=== PATIENT | male | born 1960 | race Caucasian/White ===

== ENCOUNTER 2017-02-04 09:33 | Outpatient (CLI) ==
--- NOTE | 2017-02-04 10:22 | DI ---
EXAM: Cervical spine six views HISTORY: Neck pain COMPARISON: None TECHNIQUE: Six views cervical spine were performed, including oblique views FINDINGS: Vertebral bodies normal height. C7 is poorly visualized on the lateral view. No fractur e is visualized. Mild intervertebral disc space narrowing C5-C6 and mild to moderate intervertebral disc space narrowing C6-C7. Straightening of the normal cervical lordosis. No subluxation. Multi level facet and uncovertebral hypertrophy. Degenerative changes result in mild multilevel neural fo raminal narrowing and moderate bilateral neural foraminal narrowing C4-C5 and C6-C7. Prevertebral s oft tissues appear normal. IMPRESSION: 1. Chronic discogenic degenerative disease and facet arthrosis. 2. Straightening of the normal cervical lordosis.
--- NOTE | 2017-02-04 10:22 | DI ---
EXAM: Thoracic spine radiographs. HISTORY: Back pain. COMPARISON: None available. TECHNIQUE: Frontal, lateral and swimmer's views. FINDINGS: The normal curvature and alignment are maintained. Vertebral body heights are normal. L oss of disc height and endplate osteophyte formation noted throughout the thoracic spine, moderate i n the lower thoracic spine No fracture or subluxation seen. Adjacent soft tissues are unremarkable. IMPRESSION: Moderate degenerative disc disease.
--- NOTE | 2017-02-04 10:25 | DI ---
EXAM: Left ribs four views HISTORY: Chest pain COMPARISON: None TECHNIQUE: Four views left ribs were performed FINDINGS: No left rib fracture identified. Degenerative change in the spine. +No visible pneumoth orax IMPRESSION: No left rib fracture identified.
== END 2017-02-04 09:34 | disposition home or self-care (01) ==
LOC: RAD 09:33
PROVIDERS: ATTEND Emergency Medicine
DX: M54.2 Cervicalgia (principal); M54.6 Pain in thoracic spine; R07.9 Chest pain, unspecified

== ENCOUNTER 2017-03-19 09:00 | Outpatient (RCR) ==
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
--- NOTE | 2017-03-13 16:32 | RS.OPPTDN ---
Subjective Date of Note: 03/13/17 Visit #: 2 Date of Evaluation: 03/08/17 Payer Source: Insurance Treatment Diagnosis: Back pain Current Subjective/complaints:: Patient says he has no actual comfort in any position. Reports he has sleep apnea, so it is difficult for him to sleep consistently. Says he is awakened at least hourly. Reports constant pain to the L mid to low back radiating to the ribs. He says he has been through healthcare account manager and has had laser as well as TENS unit. He replies no actual relief with any of these. Pain Assessment - Pain Description Pain Location: middle and lower back Current Pain Intensity: 06/30 - Treatment Modality: Ultrasound Parameters/Method Applied: continuous @ 1.6 w/cm2 x 12 mins Treatment Area: L mid thoracic and upper lumbar paraspinals Patient Position: Prone - Heat/Cryotherapy Treatment: Hot Pack (mid to low back in R sidelying x 15 mins) Interventions - Exercise/Activities/Manual Therapy Exercises/Activities: Initiated passive stretching to the L LE: SKTC, HS, Piriformis, Trunk rotation x 3. Education on modalities used and possibly beginning lumbar traction next week. Total minutes of Exercise: 12 Manual Therapy: NA - Charges Total Direct Minutes: 24 Total Treatment Time: 39 Procedures billed for this date of service:: hp, u/s, ex Assessment: Patient has had hx of mod to severe mid to low back pain with radiation to the L ribs (mid chest). He demo tight HS to the L and increased pain to the back and hip with fig 4 stretch (attempted once). Patient felt relief after treatment today. May benefit from beginning traction next week. Patient Education: Education of diagnosis, Body/Joint mechanics, Home Exercise Program, Home Safety, Activity Modification, Education of Plan of Care Short Term Goals Goal #1: Patient independent in basic HEP. Goal to be met by: 03/26/17 Goal #2: Bilateral SLR to 50-55 degrees. Goal to be met by: 03/26/17 Goal #3: Pain at rest <7/10. Goal to be met by: 03/26/17 Private Duty Rn Goals Goal #1: Pt knows HEP and to cont. ex's to maintain functional level at D/C. Goal to be met by: 04/27/17 Goal #2: Score on Oswestry LBP scale improved to 28. Goal to be met by: 04/27/17 Goal #3: Pt able to perform daily activities/ADL's with minimal back pain. Goal to be met by: 04/27/17 Goal #4: Pt able to sleep 6 hours without interruption from back pain. Goal to be met by: 04/27/17 Plan PLAN OF CARE EXPIRES ON:: 04/27/17 ORDER # VISITS AND/OR THROUGH DATE: 04/27/17 PLAN: Continue Plan of Care (try lumbar traction next week)
--- NOTE | 2017-03-15 16:53 | RS.OPPTDN ---
Subjective Date of Note: 03/15/17 Visit #: 3 Date of Evaluation: 03/08/17 Payer Source: Insurance Treatment Diagnosis: Back pain Current Subjective/complaints:: patient says he had mild relief from therapy extending to the evening/bedtime (about 6 hours). Reports some form of pain is always at the mid to low back and around the L side of rib cage. Pain Assessment - Pain Description Pain Location: middle and lower back Current Pain Intensity: 8/10 - Treatment Modality: Ultrasound Parameters/Method Applied: continuous @ 1.6 w/cm2 x 12 mins to the L mid thoracic to upper lumbar paraspinals Patient Position: Prone - Heat/Cryotherapy Treatment: Hot Pack (mid to low back and around to the L side in R sidelying x 15 mins) Interventions - Exercise/Activities/Manual Therapy Exercises/Activities: Continued with passive stretching to the L LE: SKTC, HS, Piriformis, Trunk rotation x 3. Total minutes of Exercise: 13 Manual Therapy: NA - Charges Total Direct Minutes: 25 Total Treatment Time: 40 Procedures billed for this date of service:: hp, u/s, ex Assessment: Patient experienced relief from first session ~ 6 hours. He expressed feeling better after today's as well. He should further improve with more lasting relief with continued modalities and intiating lumbar traction next week with using caution on thoracic belt tightness. Patient Education: Education of diagnosis, Body/Joint mechanics, Home Exercise Program, Home Safety, Activity Modification, Education of Plan of Care Short Term Goals Goal #1: Patient independent in basic HEP. Goal to be met by: 03/26/17 Goal #2: Bilateral SLR to 50-55 degrees. Goal to be met by: 03/26/17 Goal #3: Pain at rest <7/10. Goal to be met by: 03/26/17 Blacksmith Helper Goals Goal #1: Pt knows HEP and to cont. ex's to maintain functional level at D/C. Goal to be met by: 04/27/17 Goal #2: Score on Oswestry LBP scale improved to 28. Goal to be met by: 04/27/17 Goal #3: Pt able to perform daily activities/ADL's with minimal back pain. Goal to be met by: 04/27/17 Goal #4: Pt able to sleep 6 hours without interruption from back pain. Goal to be met by: 04/27/17 Plan PLAN OF CARE EXPIRES ON:: 03/28/17 ORDER # VISITS AND/OR THROUGH DATE: 04/27/17 PLAN: Continue Plan of Care
--- NOTE | 2017-03-19 10:25 | RS.OPPTDN ---
Subjective Date of Note: 03/19/17 Visit #: 4 Date of Evaluation: 03/08/17 Payer Source: Insurance Treatment Diagnosis: Back pain Current Subjective/complaints:: Patient says he had increased pain to the L mid back and low back over the weekend. Says he was not doing anything he thought would cause it, but was standing for a prolonged amount of time. He says it is better this morning. Pain Assessment - Pain Description Pain Location: middle and lower back Current Pain Intensity: 7/10 - Treatment Modality: Ultrasound Parameters/Method Applied: continuous @ 1.6w/cm2 to the L mid thoracic paraspinals and lower x 12 mins Patient Position: Prone - Heat/Cryotherapy Treatment: Hot Pack (mid to low back ( L ) in sidelying x 20 mins) - Traction Treatment Method: Mechanical, Intermittent, Lumbar Patient Position: Supine Amount of Force Applied: 58-62# Hold Time: 25 Rest Time: 5 Duration of treatment: 12 Traction Treatment Comment: 2 steps. 25% weight (254#) Interventions - Exercise/Activities/Manual Therapy Exercises/Activities: Reminded patient of HEP of stretching. Manual Therapy: NA - Charges Total Direct Minutes: 12 Total Treatment Time: 44 Procedures billed for this date of service:: hp, u/s, mechanical traction Assessment: Patient nolvia addition of traction well today. He should progress with poundage over the next few weeks. Patient Education: Education of diagnosis, Body/Joint mechanics, Home Exercise Program, Home Safety, Activity Modification, Education of Plan of Care Patient demonstrates compliance with HEP?: Yes Short Term Goals Goal #1: Patient independent in basic HEP. Goal to be met by: 03/26/17 Progress towards Goal:: Progressing Goal #2: Bilateral SLR to 50-55 degrees. Goal to be met by: 03/26/17 Goal #3: Pain at rest <7/10. Goal to be met by: 03/26/17 Long-Term Goals Goal #1: Pt knows HEP and to cont. ex's to maintain functional level at D/C. Goal to be met by: 04/27/17 Goal #2: Score on Oswestry LBP scale improved to 28. Goal to be met by: 04/27/17 Goal #3: Pt able to perform daily activities/ADL's with minimal back pain. Goal to be met by: 07/08/17 Goal #4: Pt able to sleep 6 hours without interruption from back pain. Goal to be met by: 04/27/17 Plan PLAN OF CARE EXPIRES ON:: 04/27/17 ORDER # VISITS AND/OR THROUGH DATE: 04/27/17 PLAN: Continue Plan of Care (progress traction)
== END 2017-03-20 ==
PROVIDERS: ATTEND Orthopaedic Surgery Orthopaedic Surgery of the Spine
DX: M54.5 Low back pain (principal)

== ENCOUNTER 2017-04-18 09:00 | Outpatient (RCR) ==
--- NOTE | 2017-03-21 10:45 | RS.OPPTDN ---
Subjective Date of Note: 03/21/17 Visit #: 5 Date of Evaluation: 03/08/17 Payer Source: Insurance Treatment Diagnosis: Back pain Current Subjective/complaints:: Patient says he hurts for a day after, but says traction felt good today. Pain Assessment - Pain Description Pain Location: middle and lower back Current Pain Intensity: 7/10 - Treatment Modality: Ultrasound Parameters/Method Applied: continuous @ 1.5 w/cm2 x 12 mins to lower thoracic and lumbar (L) Patient Position: Prone - Heat/Cryotherapy Treatment: Hot Pack (mid to low back in R sidelying x 20 mins) - Traction Treatment Method: Mechanical, Intermittent, Lumbar Patient Position: Supine Amount of Force Applied: 64# Hold Time: 25 Rest Time: 5 Duration of treatment: 16 Traction Treatment Comment: 2 steps Interventions - Exercise/Activities/Manual Therapy Exercises/Activities: Reminded patient of HEP of stretching. Manual Therapy: NA - Charges Total Direct Minutes: 12 Total Treatment Time: 48 Procedures billed for this date of service:: hp, u/s, mechanical traction Assessment: Patient experiencing better relief of lower back pain today. He appeared to nolvia poundage today and should progress next week. Patient Education: Education of diagnosis, Body/Joint mechanics, Home Exercise Program, Home Safety, Activity Modification, Education of Plan of Care Patient demonstrates compliance with HEP?: Yes Short Term Goals Goal #1: Patient independent in basic HEP. Goal to be met by: 03/26/17 Progress towards Goal:: Progressing Goal #2: Bilateral SLR to 50-55 degrees. Goal to be met by: 03/26/17 Goal #3: Pain at rest <7/10. Goal to be met by: 03/26/17 Group Home Goals Goal #1: Pt knows HEP and to cont. ex's to maintain functional level at D/C. Goal to be met by: 04/27/17 Goal #2: Score on Oswestry LBP scale improved to 28. Goal to be met by: 04/27/17 Goal #3: Pt able to perform daily activities/ADL's with minimal back pain. Goal to be met by: 04/27/17 Goal #4: Pt able to sleep 6 hours without interruption from back pain. Goal to be met by: 04/27/17 Plan PLAN OF CARE EXPIRES ON:: 04/27/17 ORDER # VISITS AND/OR THROUGH DATE: 04/27/17 PLAN: Continue Plan of Care
--- NOTE | 2017-03-26 10:35 | RS.OPPTDN ---
Subjective Date of Note: 03/26/17 Visit #: 6 Date of Evaluation: 03/08/17 Payer Source: Insurance Treatment Diagnosis: Back pain Current Subjective/complaints:: Patient says he has been having increased pain all weekend. Reports traction helped his low back, but where he is hurting, it is not effective. He c/o pain to the L mid to lower thoracic. He says the pain he had in the past, he could return to work, but this time he is not able to return to the duties he would have to perform. Pain Assessment - Pain Description Pain Location: middle and lower back Current Pain Intensity: 7/10 - Treatment Modality: Electrical Stim Unattended Parameters/Method Applied: IFC @ 17 pk volts x 25 mins to the L mid scapula and lower thoracic Patient Position: Prone - Heat/Cryotherapy Treatment: Hot Pack (with IFC) Interventions - Exercise/Activities/Manual Therapy Exercises/Activities: Reminded patient of HEP of stretching. Added prayer stretch and rotating to the R if able. Discussed estim and benefits. Manual Therapy: NA - Charges Total Direct Minutes: 5 Total Treatment Time: 25 Procedures billed for this date of service:: hp, estim (un) Assessment: Modified treatment to estim and omitted traction due to patient request and uneffectiveness. Patient admitted that today was the first day he felt relief and felt he was able to stand more erect. He wishes to continue with estim. Patient Education: Education of diagnosis, Body/Joint mechanics, Home Exercise Program, Home Safety, Activity Modification, Education of Plan of Care Patient demonstrates compliance with HEP?: Yes Short Term Goals Goal #1: Patient independent in basic HEP. Goal to be met by: 03/26/17 Progress towards Goal:: Progressing Goal #2: Bilateral SLR to 50-55 degrees. Goal to be met by: 03/26/17 Goal #3: Pain at rest <7/10. Goal to be met by: 03/26/17 Halfway Goals Goal #1: Pt knows HEP and to cont. ex's to maintain functional level at D/C. Goal to be met by: 04/27/17 Goal #2: Score on Oswestry LBP scale improved to 28. Goal to be met by: 04/27/17 Goal #3: Pt able to perform daily activities/ADL's with minimal back pain. Goal to be met by: 04/27/17 Goal #4: Pt able to sleep 6 hours without interruption from back pain. Goal to be met by: 04/27/17 Plan PLAN OF CARE EXPIRES ON:: 04/27/17 ORDER # VISITS AND/OR THROUGH DATE: 04/27/17 PLAN: Continue Plan of Care
--- NOTE | 2017-03-28 10:27 | RS.OPPTDN ---
Subjective Date of Note: 03/28/17 Visit #: 7 Date of Evaluation: 03/08/17 Payer Source: Insurance Treatment Diagnosis: Back pain Current Subjective/complaints:: Patient says the last treatment helped into the night, but pain returned later on. He says his has been massaging him for relief. He says that he had performed yoga stretches in the past and says his will help him. Pain Assessment - Pain Description Pain Location: middle and lower back Current Pain Intensity: 10 - Treatment Modality: Electrical Stim Unattended Parameters/Method Applied: IFC @ 14 pk volts x 23 mins L scapula and mid thoracic Patient Position: Prone - Heat/Cryotherapy Treatment: Hot Pack Interventions - Exercise/Activities/Manual Therapy Exercises/Activities: Reviewed prayer stretching, demo and instructed standing upper trunk lean to the R against the wall, cat/cow stretch. Manual Therapy: NA - Charges Total Direct Minutes: 10 Total Treatment Time: 33 Procedures billed for this date of service:: hp, estim (un) Assessment: Patient has had improved pain temporarily and has had the most relief from estim. He demo mod tenderness by palpation to the L mid thoracic and requests no DTM today as a result. He agrees to stretches at home. Patient Education: Education of diagnosis, Body/Joint mechanics, Home Exercise Program, Home Safety, Activity Modification, Education of Plan of Care Patient demonstrates compliance with HEP?: Yes Short Term Goals Goal #1: Patient independent in basic HEP. Goal to be met by: 03/26/17 Progress towards Goal:: Progressing Goal #2: Bilateral SLR to 50-55 degrees. Goal to be met by: 03/26/17 Goal #3: Pain at rest <7/10. Goal to be met by: 03/26/17 Registered Dental Hygienist Goals Goal #1: Pt knows HEP and to cont. ex's to maintain functional level at D/C. Goal to be met by: 04/27/17 Progress towards goal: Progressing Goal #2: Score on Oswestry LBP scale improved to 28. Goal to be met by: 04/27/17 Goal #3: Pt able to perform daily activities/ADL's with minimal back pain. Goal to be met by: 04/27/17 Goal #4: Pt able to sleep 6 hours without interruption from back pain. Goal to be met by: 04/27/17 Plan PLAN OF CARE EXPIRES ON:: 04/27/17 ORDER # VISITS AND/OR THROUGH DATE: 04/27/17 PLAN: Continue Plan of Care
--- NOTE | 2017-04-02 11:52 | RS.OPPTDN ---
Subjective Date of Note: 04/02/17 Visit #: 8 Date of Evaluation: 03/08/17 Payer Source: Insurance Treatment Diagnosis: Back pain Current Subjective/complaints:: Patient says he is getting the most relief from the estim currently. Says his pain is not as bad, but not good enough for him to feel he could nolvia work duties. He says he wants to return to work, but does not want to hurt worse. He reports pain to the L side of his neck extending down along the medial (L) scapula when he was performing standing stretching at home and leaning to the L. (He was encouraged to lean to the R to stretch out the L side) Pain Assessment - Pain Description Pain Location: L UT, running along the medial border of scapula Current Pain Intensity: 6/10 - Treatment Modality: Electrical Stim Unattended Parameters/Method Applied: L medial scap and mid to lower thoracic hivolt 4 large pads vertically @ 170 pk volts x 25 mins Patient Position: Prone - Heat/Cryotherapy Treatment: Hot Pack Interventions - Exercise/Activities/Manual Therapy Exercises/Activities: Reviewed prayer stretching, reviewed and corrected standing stretch (mid back) and lean to the R, not L. Discussed other cat/cow stretch. Manual Therapy: NA - Charges Total Direct Minutes: 10 Total Treatment Time: 35 Procedures billed for this date of service:: hp, estim(un) Assessment: Patient experiencing pain relief with current treatment, but has not reached a level in which he could nolvia returning to work. He was corrected in stretch that may have caused L UT pain. Patient Education: Education of diagnosis, Body/Joint mechanics, Home Exercise Program, Home Safety, Activity Modification, Education of Plan of Care Patient demonstrates compliance with HEP?: Yes Short Term Goals Goal #1: Patient independent in basic HEP. Goal to be met by: 03/26/17 Progress towards Goal:: Progressing Goal #2: Bilateral SLR to 50-55 degrees. Goal to be met by: 03/26/17 Goal #3: Pain at rest <7/10. Goal to be met by: 03/26/17 Transport Company Manager Goals Goal #1: Pt knows HEP and to cont. ex's to maintain functional level at D/C. Goal to be met by: 04/27/17 Progress towards goal: Progressing Goal #2: Score on Oswestry LBP scale improved to 28. Goal to be met by: 04/27/17 Goal #3: Pt able to perform daily activities/ADL's with minimal back pain. Goal to be met by: 04/27/17 Goal #4: Pt able to sleep 6 hours without interruption from back pain. Goal to be met by: 04/27/17 Plan PLAN OF CARE EXPIRES ON:: 04/27/17 ORDER # VISITS AND/OR THROUGH DATE: 04/27/17 PLAN: Progress Exercises (for low back)
--- NOTE | 2017-04-04 13:46 | RS.OPPTDN ---
Subjective Date of Note: 04/04/17 Visit #: 9 Date of Evaluation: 03/08/17 Payer Source: Insurance Treatment Diagnosis: Back pain Current Subjective/complaints:: Patient says this is the best he has felt and was able to get 5 hours of sleep. He says that he has been under a lot of stress lately and hopes to see further improvement with his back. Pain Assessment - Pain Description Pain Location: L UT, running along the medial border of scapula Current Pain Intensity: "It's better. More tolerable now." - Treatment Modality: Electrical Stim Unattended Parameters/Method Applied: hivolt 2 large pads at the medial border of L scapula and 2 large at inferior border of scap and upper lumbar (L) paraspinals @ 165 pk volts x 25 mins Patient Position: Prone - Heat/Cryotherapy Treatment: Hot Pack Interventions - Exercise/Activities/Manual Therapy Exercises/Activities: Reviewed Home stretching. Received passive HS stretching bilaterally Total minutes of Exercise: 6 Manual Therapy: NA - Charges Total Direct Minutes: 6 Total Treatment Time: 31 Procedures billed for this date of service:: hp, estim (un) Assessment: Patient has had relief this week from progressing and modification of modalities to estim. He has gained more sleep last night, but recently has had more stress, so he hopes to not add more pain/muscle spasms to his back. He remains moderately tight regarding the R HS. Patient Education: Education of diagnosis, Body/Joint mechanics, Home Exercise Program, Home Safety, Activity Modification, Education of Plan of Care Patient demonstrates compliance with HEP?: Yes Short Term Goals Goal #1: Patient independent in basic HEP. Goal to be met by: 03/26/17 Progress towards Goal:: Progressing Goal #2: Bilateral SLR to 50-55 degrees. Goal to be met by: 03/26/17 Goal #3: Pain at rest <7/10. Goal to be met by: 03/26/17 Loss Control Engineer Goals Goal #1: Pt knows HEP and to cont. ex's to maintain functional level at D/C. Goal to be met by: 04/27/17 Progress towards goal: Progressing Goal #2: Score on Oswestry LBP scale improved to 28. Goal to be met by: 04/27/17 Goal #3: Pt able to perform daily activities/ADL's with minimal back pain. Goal to be met by: 04/27/17 Goal #4: Pt able to sleep 6 hours without interruption from back pain. Goal to be met by: 04/27/17 Plan PLAN OF CARE EXPIRES ON:: 04/27/17 ORDER # VISITS AND/OR THROUGH DATE: 04/27/17 PLAN: Progress Exercises
--- NOTE | 2017-04-09 10:29 | RS.OPPTDN ---
Subjective Date of Note: 04/09/17 Date of Evaluation: 03/08/17 Payer Source: Insurance Treatment Diagnosis: Back pain Current Subjective/complaints:: Patient says today and over the weekend has been the best for his back pain. He says he had one episode where he stood to stretch and sat back down and had tingling to the L side of his mid back. He reports this was temporary. Pain Assessment - Pain Description Pain Location: L UT, running along the medial border of scapula Current Pain Intensity: "It's better. More tolerable now." - Treatment Modality: Electrical Stim Unattended Parameters/Method Applied: hivolt @ 245 pk volts 4 large pads along the L thoracic paraspinals x 25 mins Patient Position: Prone - Heat/Cryotherapy Treatment: Hot Pack Interventions - Exercise/Activities/Manual Therapy Exercises/Activities: Performed HS, heel cord stretching bilaterally. Lower trunk rotation x 3. Reviewed Home stretching. Total minutes of Exercise: 10 Manual Therapy: NA - Charges Total Direct Minutes: 10 Total Treatment Time: 35 Procedures billed for this date of service:: hp, estim (un), ex Assessment: Patient has had less intense mid and low back pain. He feels it is at a much tolerable level at this point. HS length is improving to the L side. Patient Education: Education of diagnosis, Body/Joint mechanics, Home Exercise Program, Home Safety, Activity Modification, Education of Plan of Care Patient demonstrates compliance with HEP?: Yes Short Term Goals Goal #1: Patient independent in basic HEP. Goal to be met by: 03/26/17 Progress towards Goal:: Progressing Goal #2: Bilateral SLR to 50-55 degrees. Goal to be met by: 03/26/17 Progress towards Goal:: Progressing Goal #3: Pain at rest <7/10. Goal to be met by: 03/26/17 Progress towards Goal:: Met Bench Loom Weaver Goals Goal #1: Pt knows HEP and to cont. ex's to maintain functional level at D/C. Goal to be met by: 04/27/17 Progress towards goal: Progressing Goal #2: Score on Oswestry LBP scale improved to 28. Goal to be met by: 04/27/17 Goal #3: Pt able to perform daily activities/ADL's with minimal back pain. Goal to be met by: 04/27/17 Progress towards goal: Progressing Goal #4: Pt able to sleep 6 hours without interruption from back pain. Goal to be met by: 04/27/17 Plan PLAN OF CARE EXPIRES ON:: 04/27/17 ORDER # VISITS AND/OR THROUGH DATE: 04/27/17 PLAN: Continue Plan of Care
--- NOTE | 2017-04-16 14:32 | RS.OPPTDN ---
Subjective Date of Note: 04/16/17 Visit #: 10 Date of Evaluation: 03/08/17 Payer Source: Insurance Treatment Diagnosis: Back pain Current Subjective/complaints:: Patient says he can see he is standing straighter and has less back pain . He says that he is not able to perform cat/ cow stretch because it hurts his low back more. He reports pain to the L side when inhaling deeply and inhibits him from using his cpap machine. Pain Assessment - Pain Description Pain Location: L UT, running along the medial border of scapula Current Pain Intensity: "It's better. More tolerable now." - Treatment Modality: Electrical Stim Unattended Parameters/Method Applied: hivolt 4 large pads along the medial border of scapula and to the L medial thoracic region @ 215 pk volts x 25 mins Patient Position: Prone - Heat/Cryotherapy Treatment: Hot Pack Interventions - Exercise/Activities/Manual Therapy Exercises/Activities: Performed HS, heel cord stretching bilaterally. Lower trunk rotation and piriformis x 3. Reviewed Home stretching. Total minutes of Exercise: 13 Manual Therapy: NA - Charges Total Direct Minutes: 13 Total Treatment Time: 33 Procedures billed for this date of service:: hp, estim (un), ex Assessment: Patient compliant with home stretching and seeing improved pain and posture with current treatment. HS length is improving greatly since PT began. Patient Education: Education of diagnosis, Body/Joint mechanics, Home Exercise Program, Home Safety, Activity Modification, Education of Plan of Care Patient demonstrates compliance with HEP?: Yes Short Term Goals Goal #1: Patient independent in basic HEP. Goal to be met by: 03/26/17 Progress towards Goal:: Progressing Goal #2: Bilateral SLR to 50-55 degrees. Goal to be met by: 03/26/17 Progress towards Goal:: Progressing Goal #3: Pain at rest <7/10. Goal to be met by: 03/26/17 Progress towards Goal:: Met Fisheries Officer Goals Goal #1: Pt knows HEP and to cont. ex's to maintain functional level at D/C. Goal to be met by: 04/27/17 Progress towards goal: Progressing Goal #2: Score on Oswestry LBP scale improved to 28. Goal to be met by: 04/27/17 Progress towards goal: Progressing Goal #3: Pt able to perform daily activities/ADL's with minimal back pain. Goal to be met by: 04/27/17 Progress towards goal: Progressing Goal #4: Pt able to sleep 6 hours without interruption from back pain. Goal to be met by: 04/27/17 Plan PLAN OF CARE EXPIRES ON:: 04/27/17 ORDER # VISITS AND/OR THROUGH DATE: 04/27/17 PLAN: Progress Exercises
--- NOTE | 2017-04-18 10:46 | RS.OPPTDN ---
Subjective Date of Note: 04/18/17 Visit #: 11 Date of Evaluation: 03/08/17 Payer Source: Insurance Treatment Diagnosis: Back pain Current Subjective/complaints:: Patient says he has elevated pain to the mid and low back related to helping his son fix his deck. He reports he realizes that he cannot go back to work performing normal duties and nolvia it. Pain Assessment - Pain Description Pain Location: L UT, running along the medial border of scapula and low back equally Current Pain Intensity: significantly more - Treatment Modality: Electrical Stim Unattended Parameters/Method Applied: hivolt 4 large pads (2 at the lumbar paraspinals, and 2 at the L scapula medial border) @ 205-215 pk volts x 23 mins Patient Position: Prone - Heat/Cryotherapy Treatment: Hot Pack Interventions - Exercise/Activities/Manual Therapy Exercises/Activities: Performed HS, SKTC, Piriformis, fig 4, heel cord stretching bilaterally. Lower trunk rotation and piriformis x 3. Reviewed Home stretching. Total minutes of Exercise: 15 Manual Therapy: NA - Charges Total Direct Minutes: 15 Total Treatment Time: 38 Procedures billed for this date of service:: hp, estim (un), ex Assessment: Patient with elevated pain today to L mid back and bilateral low back following helping his son with fixing steps on his son's porch. He spent much time on his knees and bent over, which revealed to him it would be quite difficult to return to work with harder tasks and longer time. He voiced improvement with pain following today's session, but had popping with lower trunk rotation to the R. Patient Education: Education of diagnosis, Body/Joint mechanics, Home Exercise Program, Home Safety, Activity Modification, Education of Plan of Care Patient demonstrates compliance with HEP?: Yes Short Term Goals Goal #1: Patient independent in basic HEP. Goal to be met by: 03/26/17 Progress towards Goal:: Progressing Goal #2: Bilateral SLR to 50-55 degrees. Goal to be met by: 03/26/17 Progress towards Goal:: Progressing Goal #3: Pain at rest <7/10. Goal to be met by: 03/26/17 Progress towards Goal:: Met Half-Way Goals Goal #1: Pt knows HEP and to cont. ex's to maintain functional level at D/C. Goal to be met by: 04/27/17 Progress towards goal: Progressing Goal #2: Score on Oswestry LBP scale improved to 28. Goal to be met by: 04/27/17 Progress towards goal: Progressing Comments: 25 or 50% Goal #3: Pt able to perform daily activities/ADL's with minimal back pain. Goal to be met by: 04/27/17 Progress towards goal: Progressing Goal #4: Pt able to sleep 6 hours without interruption from back pain. Goal to be met by: 04/27/17 Progress towards goal: Progressing Comments: Patient admits to improved sleep now about 6+ hours Plan PLAN OF CARE EXPIRES ON:: 04/27/17 ORDER # VISITS AND/OR THROUGH DATE: 04/27/17 PLAN: Progress Exercises (continue one more week per order.)
== END 2017-04-19 ==
PROVIDERS: ATTEND Orthopaedic Surgery Orthopaedic Surgery of the Spine
DX: M54.5 Low back pain (principal)

== ENCOUNTER 2017-04-25 09:06 | Outpatient (RCR) ==
--- NOTE | 2017-04-25 13:30 | RS.OPPTDN ---
Subjective Date of Note: 04/25/17 Visit #: 11 Date of Evaluation: 03/08/17 Payer Source: Insurance Treatment Diagnosis: Back pain Current Subjective/complaints:: Patient says therapy has helped a lot, but is also hopeful scheduled injection (05/07) will help more so that he may return to work. Pain Assessment - Pain Description Pain Location: L UT, running along the medial border of scapula and low back equally Current Pain Intensity: mild - Treatment Modality: Electrical Stim Unattended Parameters/Method Applied: hivolt 2 large pads at the lumbar region, 2 large at the medial scapula @ 210 and 165 pk volts x 25 Patient Position: Prone - Heat/Cryotherapy Treatment: Hot Pack Interventions - Exercise/Activities/Manual Therapy Exercises/Activities: Discussed HEP and maintaining flexibility, body mechanics as able during modalities. Manual Therapy: NA - Charges Total Direct Minutes: 25 Total Treatment Time: 25 Procedures billed for this date of service:: hp, estim (un) Assessment: Patient unable to complete POC and today will be his final visit due to having injection, going out of town for a week, and having personal issues. He will continue with HEP. Patient Education: Education of diagnosis, Body/Joint mechanics, Home Exercise Program, Home Safety, Activity Modification, Education of Plan of Care Patient demonstrates compliance with HEP?: Yes Short Term Goals Goal #1: Patient independent in basic HEP. Goal to be met by: 03/26/17 Progress towards Goal:: Met Goal #2: Bilateral SLR to 50-55 degrees. Goal to be met by: 03/26/17 Progress towards Goal:: Met Goal #3: Pain at rest <7/10. Goal to be met by: 03/26/17 Progress towards Goal:: Met Senior Living Goals Goal #1: Pt knows HEP and to cont. ex's to maintain functional level at D/C. Goal to be met by: 04/27/17 Progress towards goal: Met Goal #2: Score on Oswestry LBP scale improved to 28. Goal to be met by: 04/27/17 Progress towards goal: Progressing Goal #3: Pt able to perform daily activities/ADL's with minimal back pain. Goal to be met by: 04/27/17 Progress towards goal: Progressing Goal #4: Pt able to sleep 6 hours without interruption from back pain. Goal to be met by: 04/27/17 Progress towards goal: Met (using CBD oils and voltaren cream to the back to aid with sleep) Plan PLAN OF CARE EXPIRES ON:: 04/27/17 ORDER # VISITS AND/OR THROUGH DATE: 04/27/17 PLAN: Plan for Discharge
== END 2017-05-20 ==
PROVIDERS: ATTEND Orthopaedic Surgery Orthopaedic Surgery of the Spine
DX: M54.5 Low back pain (principal)

== ENCOUNTER 2017-07-09 13:20 | Outpatient (CLI) ==
[2017-07-09 13:42] LABS: BASOPHILS # (AUTO) 0.1 K/uL (0-0.2); BASOPHILS % (AUTO) 1.5 % (0.0-3.0); EOSINOPHILS # (AUTO) 0.2 K/ul (0.0-0.7); EOSINOPHILS % (AUTO) 3.2 % (0.0-7.0); HEMATOCRIT 41.1 % (42.0-52.0); HEMOGLOBIN 14.3 g/dl (14.0-18.0); IMMATURE GRANULOCYTE % (AUTO) 0.2 % (0.0-5.0); LYMPHOCYTES # (AUTO) 1.4 K/uL (0.60-3.4); LYMPHOCYTES % (AUTO) 29.4 (10.0-50.0); MEAN CORPUSCULAR HEMOGLOBIN 29.7 pg (27.0-31.0); MEAN CORPUSCULAR HGB CONC 34.8 (31.8-35.4); MEAN CORPUSCULAR VOLUME 85.4 fl (80.0-94.0); MONOCYTES # (AUTO) 0.5 K/uL (0.4-2.0); MONOCYTES % (AUTO) 11.5 (0-10); NEUTROPHILS # (AUTO) 2.5 K/ul (2.0-6.9); NEUTROPHILS % (AUTO) 54.2; PLATELET COUNT 248 10^3/uL (140-440); RED BLOOD COUNT 4.81 10^6/ul (4.70-6.10); WHITE BLOOD COUNT 4.69 K/ul (4.2-10.2)
[2017-07-09 15:30] LABS: ALBUMIN 3.5 g/dL (3.4-5.0); ALBUMIN/GLOBULIN RATIO 1.17; ANION GAP 9.3; BILIRUBIN,TOTAL 0.36 mg/dL (0.00-1.20); BUN/CREATININE RATIO 12.16; CALCIUM 9.4 mg/dL (8.2-10.2); CHOL/HDL RATIO 5.8 (4.5-6.4); CREATININE 0.74 mg/dL (0.60-1.10); POTASSIUM 4.3 mmol/L (3.5-5.1); TOTAL PROTEIN 6.5 g/dL (6.4-8.2)
== END 2017-07-09 13:21 | disposition home or self-care (01) ==
LOC: LAB 13:20
PROVIDERS: ATTEND Emergency Medicine
DX: E78.5 Hyperlipidemia, unspecified (principal); I10 Essential (primary) hypertension
CPT/HCPCS: 36415; 80053; 80061; 84443; 85025

== ENCOUNTER 2018-01-17 11:41 | Outpatient (CLI) | END 2018-01-17 11:42 | disposition home or self-care (01) | LOC: RHC-LAB 11:41 | PROVIDERS: ATTEND Emergency Medicine | DX: F33.1 Major depressive disorder, recurrent, moderate (principal); I10 Essential (primary) hypertension | CPT/HCPCS: 36415; 80053; 80061; 84443; 85025 ==

== ENCOUNTER 2018-07-09 11:34 | Outpatient (CLI) | END 2018-07-09 11:35 | disposition home or self-care (01) | LOC: FCC-LAB 11:34 | PROVIDERS: ATTEND Family Medicine | DX: Z51.81 Encounter for therapeutic drug level monitoring (principal); Z79.891 Long term (current) use of opiate analgesic | CPT/HCPCS: 80306 ==

== ENCOUNTER 2019-03-06 12:12 | Outpatient (CLI) ==
--- NOTE | 2019-03-06 13:13 | DI ---
EXAM: Thoracic spine three view HISTORY: Other spondylosis with radiculopathy COMPARISON: 02/04/2017 TECHNIQUE: Three views thoracic spine performed FINDINGS: The vertebral bodies normal height. No fracture. No subluxation. Mild multilevel chroni c discogenic degenerative disease with intervertebral disc space narrowing and marginal osteophyte fo rmation. IMPRESSION: Chronic discogenic degenerative disease.
--- NOTE | 2019-03-06 13:15 | DI ---
EXAM: Lumbar spine of five views, including oblique views HISTORY: Other spondylosis with radiculopathy, lumbar region COMPARISON: 01/05/2015 FINDINGS: Sacroiliac joints intact. Sacral arcuate lines intact. Minimal chronic anterior wedging T12. Lumbar vertebral bodies normal height. No fracture. No subluxation. Mild multilevel chronic discogenic multilevel marginal osteophyte formation. Mild to moderate multilevel intervertebral disc space narrowing, greatest at L5 - S1. Multilevel facet arthrosis, greatest in the lower spine. IMPRESSION: 1. Chronic discogenic degenerative disease and facet arthrosis. 2. Minimal chronic anterior wedging T12.
== END 2019-03-06 12:13 | disposition home or self-care (01) ==
LOC: RAD 12:12
PROVIDERS: ATTEND Family Medicine
DX: M54.9 Dorsalgia, unspecified (principal); G89.29 Other chronic pain

== ENCOUNTER 2019-06-09 09:41 | Outpatient (CLI) ==
--- NOTE | 2019-06-09 19:35 | MRI ---
EXAM: Lumbar spine MRI without contrast. HISTORY: Left hip pain. COMPARISON: Lumbar spine radiographs 03/06/2019. TECHNIQUE: Multiplanar, multisequence MR images were acquired lumbar spine without contrast. FINDINGS: Five non-rib bearing lumbar vertebra are present. The lumbar vertebra are normal in heigh t, AP alignment and intrinsic bone marrow signal. There is 2 mm retrolisthesis of L1 on L2, 1.5 mm a nterolisthesis of L3 on L4 and 1.5 mm retrolisthesis of L4 on L5 and L5 on S1. There are moderate le ft anterolateral endplate osteophytes at L1-2 with mild endplate irregularity and moderate type 1 end plate changes. There is desiccation of the lumbar intervertebral discs and there is mild L3-4 disc s pace narrowing. At L5-S1, there is a moderate diffuse disc osteophyte complex with moderate to marke d disc space narrowing, mild diffuse endplate irregularity and extensive anterior and lateral bilater al type 2 endplate changes. There is desiccation of the lumbar intervertebral discs at L1-2, L4-5 an d L5-S1 and mild central disc desiccation L2-3 and L3-4. The partially visualized liver, spleen and kidneys are unremarkable. There are no paravertebral mass es. L1-2: There is a mild diffuse spondylotic disc bulge that is asymmetric to the left and mild retrolis thesis of L1 on L2. This produces moderate bilateral foraminal stenosis. There is no central canal stenosis. L2-3: There is a minor spondylotic disc bulge and mild bilateral facet arthropathy and ligamentum fl avum hypertrophy. There is mild to moderate left and mild right mild right neural foraminal stenosis . There is no central canal stenosis. L3-4: There is anterolisthesis of L3-L4 due to moderately severe right and moderate left hypertrophi c facet arthropathy and ligamentum flavum hypertrophy. A small left facet effusion is present. Ther e is prominent dorsal epidural fat and these findings cause mild spinal stenosis and mild to moderate bilateral foraminal stenosis. AP diameter of the thecal sac is 9 mm. L4-5: There is retrolisthesis of L4 on L5 and there is a mild diffuse spondylotic disc bulge and mil d to moderate left and mild right facet and ligamentum flavum hypertrophy with small right and tiny l eft facet effusions. There is mild to moderate right and moderate left neural foraminal stenosis. T here is no central canal stenosis. L5-S1: There is a moderate diffuse disc osteophyte complex with a possible small central disc protru renee. Minor bilateral facet hypertrophy is present. There is mild to moderate right and moderate le ft neural foraminal stenosis and encroachment on both L5 nerves exiting the neural foramina. IMPRESSION: 1. Mild to moderate lumbar degenerative spondylosis and moderate to severe lower lumbar facet arthro miller with mild central spinal stenosis at L3-4. 2. Moderate disc osteophyte complex L5-S1 that encroaches on both L5 nerves exiting the neural genie kannan. 3. Multilevel foraminal stenosis. 4. Moderate discogenic disease L1-2 with moderate left ventrolateral endplate osteophytes and type 1 endplate changes.
== END 2019-06-09 09:42 | disposition home or self-care (01) ==
LOC: RAD 09:41
PROVIDERS: ATTEND Family Medicine
DX: M25.552 Pain in left hip (principal); M47.26 Other spondylosis with radiculopathy, lumbar region